=== PATIENT | female | born 1935 | race Caucasian/White ===

== ENCOUNTER → 2017-03-01 | Outpatient (CLI) | payer MEDICARE ==
[~2017-03-01] MED LIST: ACLI400A2 IH; CIPR500T87 PO; ESTR1TAB15 PO; FERR325T18 PO; FLUT1DIS5 IH; INSU100V8 SQ; IPRA3AMP IH; IPRA4AER IH; LINE600T37 PO; LOSA100T6 PO; MONT10TA6 PO; POLY17PO5 PO; PRED20TA PO; RANI150T4 PO; RIVA15TA PO; RIVA20TA PO; SIMV10TA3 PO; TRAZ50TA18 PO
== END | disposition home or self-care (01) ==
LOC: CFH 13:46
PROVIDERS: ATTEND Nurse Practitioner Primary Care
DX: I08.2 Rheumatic disorders of both aortic and tricuspid valves (principal); J43.9 Emphysema, unspecified; E11.9 Type 2 diabetes mellitus without complications; I10 Essential (primary) hypertension; E78.2 Mixed hyperlipidemia; Z79.4 Long term (current) use of insulin; Z87.891 Personal history of nicotine dependence
CPT/HCPCS: 93306